=== PATIENT | male | born 1970 | race Caucasian/White ===

== ENCOUNTER 2017-12-03 09:05 | Emergency (ER) | payer MEDICAID ==
[~2017-12-03] VITALS: Ht 167.6 cm; Wt 75.3 kg
[2017-12-03 09:19] VITALS: Ht 167.6 cm; Wt 75.3 kg
[2017-12-03 10:30] VITALS: BP 143/73
== END 2017-12-03 11:15 | disposition home or self-care (01) ==
LOC: ED 09:05
DX: S09.8XXA Other specified injuries of head, initial encounter (principal); I10 Essential (primary) hypertension; E11.9 Type 2 diabetes mellitus without complications; E78.00 Pure hypercholesterolemia, unspecified; W18.30XA Fall on same level, unspecified, initial encounter; Y93.89 Activity, other specified; Y99.8 Other external cause status; Y92.89 Other specified places as the place of occurrence of the external cause

== ENCOUNTER 2019-05-04 13:57 | Emergency (ER) | payer OTHER ==
[~2019-05-04] VITALS: Ht 167.6 cm; Wt 71.2 kg
[2019-05-04 14:01] VITALS: BP 148/77; Ht 167.6 cm; Wt 71.2 kg
== END 2019-05-04 17:21 | disposition home or self-care (01) ==
LOC: ED 13:57
DX: T15.12XA Foreign body in conjunctival sac, left eye, initial encounter (principal); T15.11XA Foreign body in conjunctival sac, right eye, initial encounter; W45.8XXA Other foreign body or object entering through skin, initial encounter; Y93.89 Activity, other specified; Y92.89 Other specified places as the place of occurrence of the external cause; Y99.8 Other external cause status